=== PATIENT | male | born 1985 | race Caucasian/White ===

== ENCOUNTER 2018-02-06 00:16 | Emergency (ER) | payer OTHER ==
[~2018-02-06] VITALS: Ht 188 cm; Wt 149.7 kg
[~2018-02-06 00:16] MED LIST: AMOX1TAB61 PO; AMOX875T PO; CIPR10DR AS; TRAM-48 PO
[2018-02-06 00:18] VITALS: BP 136/93
[2018-02-06] MEDS ORDERED: CYCL10TA2 PO (00:51)
[2018-02-06] MEDS ORDERED: ACET-704 PO (00:51)
--- NOTE | 2018-02-06 00:51 | PHYS DOC ---
Past Medical History Past Medical History: Anxiety, Depression, Other Additional Past Medical Histor: BACK INJURY/PAIN Past Surgical History: No Surgical History Alcohol Use: None Drug Use: None Adult General Chief Complaint Chief Complaint: BACK PAIN OR INJURY HPI HPI Patient is a 32-year-old male who presents to the emergency department for evaluation. He states 2 days ago he bent down to pick something up, and felt a pulling sensation in his lower back, which has persisted. He states the pain seemed to have worsened this evening. He states the pain worsened after he got out of bed to go use the bathroom. He has not had any urinary incontinence or urinary retention, numbness, weakness, or paresthesias. He has not had any fevers or chills and denies any direct traumatic injury. He states he had a similar episode about a year ago, which improved after treatment with pain medication and muscle relaxers. Movement and rotation of his back seem to worsen his pain. There are no alleviating factors to his symptoms. Review of Systems Review of Systems Constitutional: Denies fever or chills [] GI: Denies abdominal pain, nausea, vomiting, bloody stools or diarrhea [] : Denies dysuria or hematuria [] Musculoskeletal: Denies myalgias or joint pain [] Neurologic: Denies headache, focal weakness or sensory changes [] Endocrine: Denies polyuria or polydipsia [] Allergies Allergies Allergies Coded Allergies Type Severity Reaction Last Updated Verified No Known Drug Allergies 02/11/16 No Physical Exam Physical Exam PHYSICAL EXAM: CONSTITUTIONAL: Well developed, well nourished HEAD: normocephalic, atraumatic EENT: PERRL, EOMI. Conjunctivae normal color, sclerae non-icteric; moist mucous membranes. NECK: Supple, non-tender; no meningismus. LUNGS: Lungs CTA, breathing even and unlabored. Normal air movement. HEART: Regular rate and rhythm, no murmur CHEST: No deformity; non-tender ABDOMEN: The abdomen is soft, and non-tender, no masses or bruits. EXTREM: Normal ROM; no deformity, no calf tenderness. Normal pulses palpable in all extremities. There is no pedal edema. SKIN: No rash; no diaphoresis NEURO: Alert; normal speech and cognition; CN's grossly intact; strength grossly intact without focal deficit. Patellar reflexes are intact bilaterally. There is no foot drop. There is no perineal anesthesia. BACK: No CVA TTP. There is mild tenderness to palpation diffusely to the lumbar spine without any focal bony midline tenderness to palpation. Current Patient Data Vital Signs Vital Signs Date Time Temp Pulse Resp B/P (MAP) Pulse Ox O2 Delivery O2 Flow Rate FiO2 02/06/18 00:18 98.0 118 24 136/93 (107) 96 98.0 EKG EKG [] Radiology/Procedures Radiology/Procedures [] Course & Med Decision Making Course & Med Decision Making I discussed home care plan with the patient, expectant management, the need for close follow-up, and return precautions. We discussed the need for imaging if persistent symptoms or development of neurologic symptoms occur. Dragon Disclaimer Dragon Disclaimer This electronic medical record was generated, in whole or in part, using a voice recognition dictation system. Departure Departure Impression: Primary Impression: Low back strain Disposition: HOME, SELF-CARE Condition: STABLE Patient Instructions: Back Pain, Adult Additional Instructions: Ibuprofen 400-600 mg every 6 hours may help improve your symptoms. Applying a heating pad to the affected area may help improve your symptoms. The prescribed medications may cause drowsiness-use caution while taking. Use the provided resources to help establish care with a primary care provider. Scripts Acetaminophen With Codeine (TYLENOL WITH CODEINE #3 TABLET) 1 Each Tablet 1 TAB PO PRN Q6HRS PRN for PAIN, #15 TAB Prov: CARMINA BRAN MD 02/06/18 Cyclobenzaprine Hcl (CYCLOBENZAPRINE HCL) 10 Mg Tablet 1 TAB PO TID PRN for PAIN, #30 TAB Prov: CARMINA BRAN MD 02/06/18 CARMINA BRAN MD Feb 06, 2018 00:51
[2018-02-06] MEDS: diazePAM 5 MG TABLET PO ONE (01:20)
[2018-02-06] MEDS: HYDROcodone/APAP 5/325MG 1 TAB TABLET PO ONE (01:20)
== END 2018-02-06 01:29 | disposition home or self-care (01) ==
LOC: ER 00:16
DX: S39.012A Strain of muscle, fascia and tendon of lower back, initial encounter (principal); X50.1XXA Overexertion from prolonged static or awkward postures, initial encounter; Y93.89 Activity, other specified; Y92.89 Other specified places as the place of occurrence of the external cause; Y99.8 Other external cause status
CPT/HCPCS: 99283